=== PATIENT | female | born 1985 | race Two or more races ===

== ENCOUNTER 2023-06-05 14:39 | Emergency (ER) | payer MEDICAID ==
[~2023-06-05] VITALS: Ht 160 cm; Wt 61.2 kg
[2023-06-05 14:45] VITALS: BP 104/62; TEMP 99.6; O2SAT 98
== END 2023-06-05 14:55 | disposition left against medical advice (07) ==
LOC: ER 14:49
DX: F41.9 Anxiety disorder, unspecified (principal); R53.1 Weakness